=== PATIENT | male | born 1980 | race Caucasian/White ===

== ENCOUNTER 2017-10-01 04:34 | Emergency (ER) | payer OTHER ==
[~2017-10-01] VITALS: Ht 172.7 cm; Wt 81.6 kg
[2017-10-01 04:48] VITALS: BP 121/70
[2017-10-01] MEDS ORDERED: FLUORESCEIN SODIUM OPHTH 1 EA STRIP ONE (05:23)
[2017-10-01] MEDS ORDERED: TETRACAINE HCL/PF 0.5% UD 2 ML BOTTLE ONE (05:24)
[2017-10-01] MEDS ORDERED: FLUORESCEIN SODIUM OPHTH 1 EA STRIP OP ONE (05:30)
[2017-10-01] MEDS ORDERED: TETRACAINE HCL/PF 0.5% UD 2 ML BOTTLE OP ONE (05:30)
== END 2017-10-01 05:56 | disposition home or self-care (01) ==
LOC: ER 04:39
DX: H57.12 Ocular pain, left eye (principal)
CPT/HCPCS: 99283; A4606; Z7610